=== PATIENT | female | born 1985 | race Asian ===

== ENCOUNTER 2017-04-08 12:07 | Emergency (ER) | payer OTHER ==
[~2017-04-08] VITALS: Ht 167.6 cm; Wt 61.8 kg
[2017-04-08 12:51] LABS: microscopic required? YES; urine erythrocyte 3+ (NEGATIVE)
[2017-04-08 13:09] LABS: BASOPHIL % 0.5 % (0-2); PLATELET COUNT 178 x10^3mcL (130-400)
[2017-04-08 14:30] VITALS: BP 128/76
== END 2017-04-08 14:30 | disposition home or self-care (01) ==
LOC: ED 12:07
PROVIDERS: Specialist
DX: O03.9 Complete or unspecified spontaneous abortion without complication (principal); O23.41 Unspecified infection of urinary tract in pregnancy, first trimester; Z3A.01 Less than 8 weeks gestation of pregnancy
CPT/HCPCS: 36415